=== PATIENT | female | born 1960 | race American Indian/Alaskan Native ===

== ENCOUNTER 2016-10-19 15:58 | Outpatient (CLI) | payer OTHER ==
--- NOTE | 2016-10-22 10:14 | Mammography Report ---
BILATERAL MAMMOGRAM: FINDINGS: The breasts are almost entirely fat (<25% glandular). No mass, distortion, suspicious calcification, or skin change is seen. No interval change identified when compared to her prior study in October 2015. CAD was utilized. IMPRESSION: Negative mammogram. There is no mammographic evidence of malignancy. RECOMMENDATION: Follow-up per ACS guidelines. BI-RADS CATEGORY: 1 = Negative ACR BI-RADS MAMMOGRAPHIC CODES: 0 = Needs additional imaging evaluation; 1 = Negative; 2 = Benign; 3 = Probably benign; 4 = Suspicious; 5 = Malignant; 6 = Known biopsy-proven malignancy COMMENT: 1. Dense breast tissue, i.e., adenosis, fibrocystic changes, etc., may obscure an underlying neoplasm. 2. Approximately 10% of cancers are not detected with mammography. 3. A negative mammography report should not delay biopsy if a clinically suspicious mass is present. COMMENT: Patient follow-up letters are generated in [employer].
== END 2016-10-19 15:59 | disposition home or self-care (01) ==
LOC: SPVWC 15:58
PROVIDERS: ATTEND Obstetrics & Gynecology
DX: Z12.31 Encounter for screening mammogram for malignant neoplasm of breast (principal)
CPT/HCPCS: 77067; G0202

== ENCOUNTER 2017-12-13 12:48 | Outpatient (CLI) | payer BC ==
--- NOTE | 2017-12-16 09:39 | Mammography Report ---
BILATERAL DIGITAL SCREENING MAMMOGRAM with CAD: 12/13/17 12:48:00 CLINICAL: Routine screening. COMPARISON:10/19/16 FINDINGS: The breasts are almost entirely fatty. No mass, architectural distortion or suspicious calcifications. IMPRESSION: No mammographic evidence of malignancy. BI-RADS CATEGORY: 1 - - Negative RECOMMENDATION: Routine mammographic screening in one year. COMMENT: Patient follow-up letters are generated by our [employer] application.
== END 2017-12-13 12:49 | disposition home or self-care (01) ==
LOC: SPVWC 12:48
PROVIDERS: ATTEND Obstetrics & Gynecology
DX: Z12.31 Encounter for screening mammogram for malignant neoplasm of breast (principal)
CPT/HCPCS: 77067

== ENCOUNTER 2018-12-19 13:57 | Outpatient (CLI) | payer BC ==
--- NOTE | 2018-12-25 08:26 | Mammography Report ---
DIGITAL SCREENING MAMMOGRAM WITH CAD, 12/19/2018 INDICATION: Routine screening mammography. TECHNIQUE: Digital bilateral 2D mammography was obtained in the craniocaudal and mediolateral obliq ue projections. This examination was interpreted with the benefit of Computer-Aided Detection analysi s. COMPARISON: 12/13/2017 FINDINGS: Breast Density: The breasts are almost entirely fatty. There is no evidence of dominant mass, suspicious calcifications or architectural distortion in eithe r breast. IMPRESSION: Mammographic evidence of malignancy. Follow up recommendation: Routine yearly BI-RADS Category 1: Negative. A "normal" or negative report should not discourage follow up or biopsy of a clinically significant f inding. A written summary of these findings will be mailed to the patient. The patient will be entered into a mammography reporting system which will generate a reminder letter for the patient's next appointmen t at the appropriate interval. The [employer] recommends yearly mammograms starting at age 40 and continuing as l lauren as a woman is in good health. Breast MRI is recommended for women with an approximate 20-25% or greater lifetime risk of breast cancer, including women with a strong family history of breast or ova rafael cancer or who have been treated for Hodgkin's disease. Signer Name: Wallace Galarza MD Signed: 12/25/2018 8:22 AM Workstation Name: [id number]
== END 2018-12-19 13:58 | disposition home or self-care (01) ==
LOC: SPVWC 13:57
PROVIDERS: ATTEND Obstetrics & Gynecology
DX: Z12.31 Encounter for screening mammogram for malignant neoplasm of breast (principal)
CPT/HCPCS: 77067

== ENCOUNTER 2020-01-22 14:38 | Outpatient (CLI) | payer BC ==
--- NOTE | 2020-01-26 17:07 | Mammography Report ---
DIGITAL SCREENING MAMMOGRAM WITH CAD, 01/26/2020 INDICATION: Routine screening mammography. TECHNIQUE: Digital bilateral 2D mammography was obtained in the craniocaudal and mediolateral obliq ue projections. This examination was interpreted with the benefit of Computer-Aided Detection analysi s. COMPARISON: 12/19/2018, 12/13/2017, 10/19/2016 FINDINGS: Breast Density: The breasts are almost entirely fatty. There is no evidence of dominant mass, suspicious calcifications or architectural distortion in eithe r breast. IMPRESSION: Follow up recommendation: Routine yearly BI-RADS Category 1: Negative. A "normal" or negative report should not discourage follow up or biopsy of a clinically significant f inding. A written summary of these findings will be mailed to the patient. The patient will be entered into a mammography reporting system which will generate a reminder letter for the patient's next appointmen t at the appropriate interval. The [employer] recommends yearly mammograms starting at age 40 and continuing as l lauren as a woman is in good health. Breast MRI is recommended for women with an approximate 20-25% or greater lifetime risk of breast cancer, including women with a strong family history of breast or ova rafael cancer or who have been treated for Hodgkin's disease. Signer Name: Stacie Powell MD Signed: 01/26/2020 5:02 PM Workstation Name: [id number]
== END 2020-01-22 14:39 | disposition home or self-care (01) ==
LOC: SPVWC 14:38
PROVIDERS: ATTEND Obstetrics & Gynecology
DX: Z12.31 Encounter for screening mammogram for malignant neoplasm of breast (principal)
CPT/HCPCS: 77067

== ENCOUNTER 2021-02-10 14:39 | Outpatient (CLI) | payer OTHER | END 2021-02-10 14:40 | disposition home or self-care (01) | LOC: SPVWC 14:39 | PROVIDERS: ATTEND Obstetrics & Gynecology | DX: Z12.31 Encounter for screening mammogram for malignant neoplasm of breast (principal) | CPT/HCPCS: 77063; 77067 ==

== ENCOUNTER 2021-02-23 14:46 | Outpatient (CLI) | payer OTHER ==
--- NOTE | 2021-02-23 15:46 | Ultrasound Report ---
ULTRASOUND BREAST RIGHT LIMITED, 02/23/2021 CLINICAL INFORMATION / INDICATION: F/U abnormal mammogram. TECHNIQUE: Targeted ultrasound evaluation was performed of the area of interest. COMPARISON: Recent mammogram 02/10/2021 and prior mammogram 01/22/2020, 12/19/2018 FINDINGS: Sonographic evaluation of the lower inner quadrant of the right breast shows an oval hypoechoic mass at 4:00 in the superficial tissue. The mass measures 8 x 6 x 3 mm and correlates with recently descri bed mammographic finding. Overall appearance of the mass suggests a benign process, IMPRESSION: Probably benign finding. Small mass in the right breast at 4:00 is present with overall b enign features. Recommend 6 month follow-up right breast ultrasound to assess stability. Follow up recommendation: Short term follow up in 6 months. BI-RADS Category 3: Probably Benign. Followup in 6 months. A normal or "negative" report should not preclude biopsy or follow-up of a clinically suspicious find ing. Signer Name: Yuliya Flores MD Signed: 02/23/2021 3:42 PM Workstation Name: [id number]
== END 2021-02-23 14:47 | disposition home or self-care (01) ==
LOC: SPVWC 14:46
PROVIDERS: ATTEND Obstetrics & Gynecology
DX: N63.14 Unspecified lump in the right breast, lower inner quadrant (principal)

== ENCOUNTER 2021-08-18 14:37 | Outpatient (CLI) | payer OTHER ==
--- NOTE | 2021-08-18 17:02 | Ultrasound Report ---
ULTRASOUND BREAST RIGHT LIMITED, 08/18/2021 CLINICAL INFORMATION / INDICATION: This is a short-term follow-up ultrasound for abnormality identifi ed in the right breast at 4:00 on prior exam.. TECHNIQUE: Targeted ultrasound evaluation was performed of the area of interest. COMPARISON: Prior right breast ultrasound 02/23/2021, and prior mammogram 02/10/2021 FINDINGS: There is an oval hypoechoic smoothly marginated mass in the right breast at 4:00, subareolar in locat ion. The mass measures 8 x 4 mm and is unchanged in size and appearance compared with prior ultrasoun d from 02/23/2021. IMPRESSION: Probably benign finding. Stable appearance of benign-appearing oval mass in the right yuly ast at 4:00. I would recommend one additional 6 month follow-up right breast ultrasound. This can be performed at the same time as patient's scheduled bilateral annual mammogram exam. Follow up recommendation: Short term follow up in 6 months. BI-RADS Category 3: PROBABLY BENIGN. Followup in 6 months. A normal or "negative" report should not preclude biopsy or follow-up of a clinically suspicious find ing. Signer Name: Yuliya Flores MD Signed: 08/18/2021 4:57 PM Workstation Name: [email or web address]
== END 2021-08-18 14:38 | disposition home or self-care (01) ==
LOC: US 14:37
PROVIDERS: ATTEND Obstetrics & Gynecology
DX: N63.13 Unspecified lump in the right breast, lower outer quadrant (principal); R92.8 Other abnormal and inconclusive findings on diagnostic imaging of breast